=== PATIENT | male | born 1990 | race Caucasian/White ===

== ENCOUNTER 2019-01-12 09:19 | Emergency (ER) | payer OTHER ==
[~2019-01-12] VITALS: Ht 175.3 cm; Wt 78.9 kg
[2019-01-12 09:23] VITALS: BP 120/61
[2019-01-12] MEDS ORDERED: IBUPROFEN 600 MG TABLET PO ONE ×2 (09:58→10:00)
[2019-01-12] MEDS ORDERED: ACETAMINOPHEN 325 MG TABLET ONE (09:58)
[2019-01-12] MEDS ORDERED: ACETAMINOPHEN 650 MG/20.3 ML UDC PO ONE (10:00)
== END 2019-01-12 10:07 ==
LOC: ER 09:22
DX: S00.11XA Contusion of right eyelid and periocular area, initial encounter (principal); S00.83XA Contusion of other part of head, initial encounter; W06.XXXA Fall from bed, initial encounter; Y93.89 Activity, other specified; Y92.89 Other specified places as the place of occurrence of the external cause; Y99.8 Other external cause status